=== PATIENT | female | born 1990 | race Caucasian/White ===

== ENCOUNTER 2020-02-29 08:27 | Day surgery (SDC) | payer OTHER, SELFPAY ==
[2020-02-26 12:19] VITALS: BMI 37.8
[2020-02-29 08:37] VITALS: BP 116/83; PULSE 75; RESP 18; TEMP 36.3; O2SAT 98
[2020-02-29 08:49] LABS: OR HCG Qualitative Urine Negative (Negative)
[2020-02-29] MEDS: sodium chloride 0.9% 1,000 ML 30 ML IV (08:55)
--- NOTE | 2020-02-29 09:13 | W.PM.OPSUD ---
Surgery/Procedure H&P Update DATE OF PROCEDURE: February 29, 2020 DATE H&P PERFORMED: 02/24/20 H&P UPDATE INFORMATION: I have reviewed H&P completed within last 30 days, I have examined patient prior to procedure and No changes to prior documentation PREOP DIAGNOSIS: Bleeding per rectum PRIMARY INDICATION FOR PROCEDURE: The same PLANNED PROCEDURE: Operation Date: 02/29/20 09:20 Proposed Procedures p Colonoscopy [id number] K62.5 K64.9(Not Applicable) - Trever Porter MD s Exam Under Anesthesia(Not Applicable) - Trever Porter MD s poss Hemorroidectomy(Not Applicable) - Trever Porter MD
--- NOTE | 2020-02-29 09:26 | ANES.PREANE2 ---
Pre-Anesthetic Assessment Pre-Anesthetic Assessment: Height/Weight: Height 1.68 m Weight 106.141 kg Temp Pulse Resp BP Pulse Ox 97.3 F L 75 18 116/83 98 02/29/20 08:37 02/29/20 08:37 02/29/20 08:37 02/29/20 08:37 02/29/20 08:37 Preop Diagnosis: Bleeding per rectum Proposed Procedure: Operation Date: 02/29/20 09:20 Proposed Procedures p Colonoscopy [id number] K62.5 K64.9(Not Applicable) - Trever Porter MD s Exam Under Anesthesia(Not Applicable) - Trever Porter MD s poss Hemorroidectomy(Not Applicable) - Trever Porter MD Last intake: Intake Last Liquid Date 02/28/20 Last Liquid Time 22:00 Last Solid Date 02/27/20 Last Solid Time 16:00 Social: Social History: Tobacco and No alcohol Exam: Pre-Anes Outpt Exam: alert, oriented x 3, clear to auscultation bilaterally and regular rate & rhythm Airway: Submandibular: WNL Cervical ROM: WNL MP: 2 Dentition: Full History/ROS: No significant history except as noted Pulmonary: Pulmonary: None reported CV/HEM: CV/HEM: None reported : : None reported Hepatic: Hepatic: None reported GI: GI: None reported Metabolic: Metabolic: None reported Musc/skel: Musc/skel: None reported Neuropsych: Neuropsych: None reported Anesthetic Plan: ASA status: 2 Anesthesia: General Risk of > 500 ml blood loss (7ml/kg in children): No PFSH Anesthesia PFSH: Medical History No pertinent past medical history Denies: diabetes, asthma, hypertension, seizures, DVT/PE. PCP: None Surgical History S/P appendectomy Open appendectomy with incision and McBurney's point for ruptured appendix in 2001 at [facility]. Status post tonsillectomy 2010 Family History Grandfather Colitis maternal Mother Multiple sclerosis Grandmother Multiple sclerosis maternal Family/Other Diabetes maternal great aunt Denies family history of Colon cancer Ovarian cancer DVT (deep venous thrombosis) Heart disease Hyperlipidemia Breast cancer Pulmonary embolism Hypertension Uterine cancer Thyroid condition Stroke Social History Smoking and tobacco status: current every day smoker Additional social history: - Tobacco Use: Started smoking at the age of 17 and smoked for the most 1 pack of cigarettes a day; is currently smoking half pack of cigarettes a day. She currently declines any aids to help with stopping smoking. 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
--- NOTE | 2020-02-29 10:01 | PM.OP ---
Operative Report Date of procedure: February 29, 2020 Pre-op Diagnosis: Bleeding per rectum Post-op diagnosis: same (Small right lower lateral external hemorrhoid without complication, rectal polyps x2 measures 2 to 4 mm average in diameter) Procedure Done: Colonoscopy with biopsy and examination under anesthesia Specimens removed/disposition: Rectal polyps Surgeon: Trever Porter Polymer Tester: camera repair technician Amanda Circulating nurse Marva Anesthesia: MAC (Beto Christensen) Estimated blood loss (mL): 1 Condition: stable Disposition: same day Brief History: This is a pleasant 29 years old female patient was referred to my practice with history of intermittent bleeding per rectum and there was a concern about history of hemorrhoids, patient was evaluated and after thorough history physical examination and reviewing the chart I did behavioral school counselors the patient for colonoscopy with examination under anesthesia and possible hemorrhoidectomy. Patient agreed to proceed accordingly and informed consent per chart Procedure: Patient was identified in the holding area, was taken to the OR placed first in supine position then patient was placed in left lateral position and IV propofol was infused by the anesthesia provider during the whole entire procedure the patient was monitored via monitoring and evaluation advisor. Timeout was done verifying the patient's name procedure and destination after the procedure and all were in agreement Perianal examination showed small right lower lateral external hemorrhoid without complication Following that a digital rectal examination was done and there were no masses appreciated and bleeding, the colonoscope was then introduced via the anus under direct visualization, all the way to the cecum and terminal ileum, prep of the colon was appropriate, there were 2 rectal polyps identified and a multi-bite cold biopsy forceps was used to remove both polyps and both were sent for permanent pathology, Endo Clip resolution type was used to approximate the edges of 1 of the polypectomy site, otherwise there was no evidence of masses or diverticular disease or strictures, the scope was then retrieved back ,time for withdrawal exceeded 8 minutes, gas was deflated on the way out.Retroflex was done at the end showing no other hemorrhoidal disease or anal masses. Specimens were passed to the circulating nurse Patient was repositioned to supine position, patient tolerated the procedure well Patient was taken to the recovery area in stable condition I was present for the whole entire procedure
[2020-02-29 10:02] VITALS: BP 111/60; PULSE 53; RESP 16; TEMP 36.5; O2SAT 99
[2020-02-29 10:17] VITALS: BP 117/55; PULSE 54; RESP 16; TEMP 36.6; O2SAT 100
--- NOTE | 2020-02-29 10:59 | PM.PACU ---
PACU note PACU note: VSS, pain good control. Post-Anesthesia Exam: awake Disposition: discharged
== END 2020-02-29 10:40 | disposition home or self-care (01) ==
PROVIDERS: Visit Provider Surgery
PROC: 0DJD8ZZ Inspection of Lower Intestinal Tract, Via Natural or Artificial Opening Endoscopic (ICD-10-PCS; CPT 45378; principal; 2020-02-29 09:20)
PROC: (CPT 45380; 2020-02-29 09:20)
DX: K62.1 Rectal polyp (principal); K64.4 Residual hemorrhoidal skin tags; F17.210 Nicotine dependence, cigarettes, uncomplicated
CPT/HCPCS: 45380; 12345; 81025; 84703; 88305; J2704; J7030

== ENCOUNTER → 2021-02-09 08:30 | Outpatient (BNVA) | payer OTHER, SELFPAY | PROVIDERS: Visit Provider Obstetrics & Gynecology | DX: Z12.4 Encounter for screening for malignant neoplasm of cervix (principal) | CPT/HCPCS: 88175 ==

== ENCOUNTER 2023-08-19 16:00 | Outpatient (CLI) | payer OTHER, SELFPAY | END 2023-08-19 16:01 | disposition home or self-care (01) | LOC: SLEEP 08-21 12:39 | PROVIDERS: PCP Nurse Practitioner Family; Visit Provider Nurse Practitioner Family | DX: G47.10 Hypersomnia, unspecified (principal); R06.83 Snoring | CPT/HCPCS: G0399 ==

== ENCOUNTER → 2023-10-09 15:27 | Outpatient (BNVA) | payer OTHER, SELFPAY | PROVIDERS: PCP Nurse Practitioner Family; Referring Provider Nurse Practitioner Family; Visit Provider Specialist | DX: G56.03 Carpal tunnel syndrome, bilateral upper limbs (principal) | CPT/HCPCS: 73130; 80053; 85025 ==

== ENCOUNTER → 2023-11-20 09:59 | Outpatient (BNVA) | payer OTHER, SELFPAY | PROVIDERS: PCP Nurse Practitioner Family; Visit Provider Family Medicine | DX: Z01.818 Encounter for other preprocedural examination (principal) | CPT/HCPCS: 80048; 85025 ==

== ENCOUNTER 2023-11-28 06:36 | Day surgery (SDC) | payer OTHER, SELFPAY ==
[2023-11-28] VITALS (10 sets, daily range): BP systolic 94–140; BP diastolic 55–78; PULSE 62–80; RESP 12–18; TEMP 35.8–36.4; O2SAT 95–98; BMI 46.5
[2023-11-28 07:04] LABS: OR HCG Qualitative Urine Negative (Negative)
--- NOTE | 2023-11-28 07:04 | P.HPUD_ITS ---
Surgery/Procedure H&P Update DATE OF PROCEDURE: November 28, 2023 DATE H&P PERFORMED: 11/20/23 H&P UPDATE INFORMATION: I have reviewed H&P completed within last 30 days, I have examined patient prior to procedure, No changes to prior documentation and H&P is in [facility] EMR on date indicated PLANNED PROCEDURE: Operation Date: 11/28/23 08:10 Proposed Procedures p Carpal Tunnel Release(Left) - Manuela Rondon MD Related Problem List Diagnoses (1) Carpal tunnel syndrome, left:
--- NOTE | 2023-11-28 07:14 | ANES.PREANE2 ---
Pre-Anesthetic Assessment Height/Weight: Height 1.7 m Operation Date: 11/28/23 08:10 Proposed Procedures p Carpal Tunnel Release(Left) - Manuela Rondon MD Familial anesthetic complications: none Was Beta Jae taken within 24 hours: N/A Was Clonidine taken within 24 hours: N/A Social Tobacco and No alcohol Exam alert, oriented x 3 and regular rate & rhythm Airway Submandibular: within normal limits Cervical ROM: within normal limits Mallampati: Class II Dentition: full Pulmonary Chronic Obstructive Pulmonary Disease CV/HEM Hypertension Metabolic Morbid Obesity Neuropsych Anxiety and Depression Anesthetic Plan ASA status: 3 Anesthesia: Choice Medications/Allergies Home Medications Medication Instructions Recorded Confirmed Last Taken Type escitalopram oxalate 10 mg tablet 10 mg PO DAILY 10/03/23 11/28/23 11/26/23 History (Lexapro) lisinopril 10 mg tablet 10 mg PO DAILY 10/03/23 11/28/23 11/26/23 History Allergies Allergy/AdvReac Type Severity Reaction Status Date / Time No Known Allergies Allergy Verified 11/28/23 06:53 [facility] Anesthesia Medical History Anxiety and depression Hypertension No pertinent past medical history Denies diabetes, asthma, seizures, DVT/PE PCP: JAMIE Ramsay Surgical History Status post tonsillectomy 2010 S/P appendectomy Open appendectomy with incision and McBurney's point for ruptured appendix in 2001 at [facility]. Family History Grandfather Colitis maternal Mother Multiple sclerosis, Onset Age: 40 Grandmother Multiple sclerosis maternal Family/Other Diabetes maternal great aunt Denies family history of Colon cancer Ovarian cancer DVT (deep venous thrombosis) Heart disease Hyperlipidemia Breast cancer Pulmonary embolism Hypertension Uterine cancer Thyroid disease Stroke Female Reproductive History Date of last menstrual period: 10/28/23 Data Anesthesia Cardiac Studies: No Data to Display
[2023-11-28] MEDS: gabapentin 300 mg Capsule PO (07:20)
[2023-11-28] MEDS: CELEcoxib 200 mg Capsule 400 MG PO (07:20)
[2023-11-28] MEDS: sodium chloride 0.9% 1,000 ML 30 ML IV (07:22)
[2023-11-28] MEDS: acetaminophen 1,000 MG/100 ML PIGGYBACK 400 MG IV (07:23)
[2023-11-28] MEDS: ceFAZolin 2,000 MG in sodium chloride 0.9% (plus) 50 ML 100 MG IV (08:07)
[2023-11-28] MEDS: BUPivacaine 0.5% INJ 30 mL XX (08:29)
--- NOTE | 2023-11-28 09:19 | PM.OP ---
Operative Report Date of procedure: November 28, 2023 Pre-op diagnosis: Left carpal tunnel syndrome Post-op diagnosis: Left carpal tunnel syndrome Post-op findings: Significant compression across the carpal canal with compression along the median nerve proximally as well Procedure done: Left carpal tunnel release Specimens removed/disposition: None Surgeon: Manuela Rondon MD Insulation Estimator: None Anesthesia: General (Per LMA, ASA 3) Estimated blood loss (mL): 2 Tourniquet time (min): 21 (At 250 mmHg) Tourniquet was elevated initially for only 2 minutes. There was some leakage from the tourniquet, and it was reinflated and reelevated IV fluids (mL): 400 Urine output (mL): 0 (No Lowery) Complications: None Findings: Significant findings of carpal tunnel syndrome with compression across the median nerve Condition: stable Disposition: PACU (Then return to same-day surgery for discharge to home) Brief History: This 33-year-old woman presented to the office with complaints of bilateral carpal tunnel syndromes. Nerve conduction studies demonstrated that indeed she had compression of the median nerve at the wrist. After discussion, the patient wished to proceed with operative intervention in the form of left carpal tunnel release. Procedure: The patient was brought to the operating theater. The patient had a general anesthesia per LMA, ASA 3. The tourniquet was elevated to 250 mmHg for a total tourniquet time of 21 minutes. The patient was also given Ancef 2 g preoperatively. The arm was then prepped and draped with DuraPrep in usual fashion with the arm draped free. A surgical pause was performed. At the time, the surgical pause, we confirmed the site and side of surgery. We also confirmed the patient's identity, appropriate and timely administration of preoperative antibiotics and preoperative surgical markings. An incision was then made along the thenar crease. The incision crossed the wrist joint in a curvilinear fashion. Dissection continued through skin and soft tissues using a scalpel. The palmaris longus was identified along with the transverse carpal ligament. Each of these was released carefully to avoid injury to the median nerve. We were able to dissect gently into the carpal canal which was noted to be quite tight with significant compression across the median nerve. The nerve was visualized and was an hourglass shape. The canal was subsequently palpated to assure there was no bony encroachment upon the canal. There was a quite thickened fibrous tissue within the canal, and this was opened longitudinally as well. The canal was then palpated distally and proximally to assure that my small finger was passed easily without impingement. Finding this to be so, attention was directed to closure. The wound was irrigated with ropivacaine plain. It was then closed with 3-0 nylon in an interrupted mattress fashion. Sterile dressing was then placed consisting of Dermabond, OpSite, fluffed fluffs, soft roll, and an Burak wrap. The tourniquet was released after 21 minutes. There were no complications. There were no specimens. The procedure was well tolerated. Plan is the patient will be discharged home. Related Problem List Diagnoses (1) Carpal tunnel syndrome, left:
--- NOTE | 2023-11-28 13:47 | ANE.PACU2 ---
Inpatient post-anesthesia follow up: Airway intact: Yes Vital signs: Temperature 97.0 F Pulse Rate 62 Respiratory Rate 18 Blood Pressure 106/71 Pulse Oximetry 97 Oxygen Delivery Me thod Room Air Oxygen Flow Rate 6 Fraction of Inspir ed Oxygen Hydration adequate: Yes Nausea and vomiting: No Pain level: 2 Mental status: Baseline
== END 2023-11-28 10:04 | disposition home or self-care (01) ==
PROVIDERS: Anesthesiology; PCP Nurse Practitioner Family; Visit Provider Specialist
PROC: (CPT 64721; principal; 2023-11-28 08:00)
DX: G56.02 Carpal tunnel syndrome, left upper limb (principal)
CPT/HCPCS: 64721; 81025; J0131; J0690; J1100; J2250; J2405; J2704; J3010; J3490; J7030

== ENCOUNTER 2024-03-19 06:59 | Day surgery (SDC) | payer OTHER, SELFPAY ==
[2024-03-19] VITALS (10 sets, daily range): BP systolic 107–137; BP diastolic 72–99; PULSE 60–77; RESP 16; TEMP 36.1–37.1; O2SAT 95–100; BMI 45.7
[2024-03-19] MEDS: sodium chloride 0.9% 1,000 ML 30 ML IV (07:00)
--- NOTE | 2024-03-19 07:05 | ANES.PREANE2 ---
Pre-Anesthetic Assessment Height/Weight: Height 5 ft 5 in Operation Date: 03/19/24 08:15 Proposed Procedures p Carpal Tunnel Release(Right) - Manuela Rondon MD Familial anesthetic complications: none Social Tobacco current smoker Airway Submandibular: within normal limits Cervical ROM: within normal limits Mallampati: Class II Dentition: full Anesthetic Plan ASA status: 3 Anesthesia: General Other: Patient recently had similar procedure without issues NPO since midnight Hypertension on lisinopril Current smoker test METS greater than 4 Plan for general anesthetic with LMA Medications/Allergies Home Medications Medication Instructions Recorded Confirmed Last Taken Type escitalopram oxalate 10 mg tablet 10 mg PO DAILY 10/03/23 03/17/24 03/17/24 History (Lexapro) lisinopril 10 mg tablet 10 mg PO DAILY 10/03/23 03/17/24 03/17/24 History Allergies Allergy/AdvReac Type Severity Reaction Status Date / Time No Known Allergies Allergy Verified 03/19/24 06:54 [facility] Anesthesia Medical History Anxiety and depression Hypertension No pertinent past medical history Denies diabetes, asthma, seizures, DVT/PE PCP: JAMIE Ramsay Surgical History Status post tonsillectomy 2010 S/P appendectomy Open appendectomy with incision and McBurney's point for ruptured appendix in 2001 at [facility]. Family History Grandfather Colitis maternal Mother Multiple sclerosis, Onset Age: 40 Grandmother Multiple sclerosis maternal Family/Other Diabetes maternal great aunt Denies family history of Colon cancer Ovarian cancer DVT (deep venous thrombosis) Heart disease Hyperlipidemia Breast cancer Pulmonary embolism Hypertension Uterine cancer Thyroid disease Stroke Social History Smoking and tobacco/nicotine status: current every day tobacco/nicotine user Data Anesthesia Cardiac Studies: No Data to Display
[2024-03-19] MEDS: gabapentin 300 mg Capsule PO (07:12)
[2024-03-19] MEDS: acetaminophen 1,000 MG/100 ML PIGGYBACK 400 MG IV (07:12)
[2024-03-19] MEDS: CELEcoxib 200 mg Capsule 400 MG PO (07:12)
--- NOTE | 2024-03-19 07:51 | W.PM.OPSUD ---
Surgery/Procedure H&P Update DATE OF PROCEDURE: March 19, 2024 DATE H&P PERFORMED: 03/09/24 H&P UPDATE INFORMATION: I have reviewed H&P completed within last 30 days, I have examined patient prior to procedure, No changes to prior documentation and H&P is in [facility] EMR on date indicated PLANNED PROCEDURE: Operation Date: 03/19/24 08:15 Proposed Procedures p Carpal Tunnel Release(Right) - Manuela Rondon MD Related Problem List Diagnoses (1) Carpal tunnel syndrome on right:
[2024-03-19 07:53] LABS: OR HCG Qualitative Urine Negative (Negative)
[2024-03-19] MEDS: ceFAZolin 3,000 MG in sodium chloride 0.9% (100 ml) 100 ML 200 MG IV (08:07)
[2024-03-19] MEDS: BUPivacaine 0.5% INJ 30 mL XX (08:29)
--- NOTE | 2024-03-19 09:17 | P.OP_ITS ---
Operative Report Date of procedure: March 19, 2024 Pre-op diagnosis: Right carpal tunnel syndrome Post-op diagnosis: Right carpal tunnel syndrome Post-op findings: Very tight carpal canal with compression across the nerve and purpleish discoloration Procedure done: Right carpal tunnel release Implants: None Specimens removed/disposition: None Surgeon: Manuela Rondon MD Operator Assistant I Cementing: None Anesthesia: General (Per LMA, ASA 3) Estimated blood loss (mL): 4 Tourniquet time (min): 9 (At 250 mmHg) IV fluids (mL): 350 Urine output (mL): 0 (No Lowery) Complications: None Findings: Severe compression across the carpal canal Condition: stable Disposition: PACU (Then return to same-day surgery for discharge to home) Brief History: This 33-year-old woman presented initially to the clinic with complaints of her right hand going numb and tingling at night. She had a successful left carpal tunnel release, and as the right became more symptomatic. She wished to proceed with right carpal tunnel release. Risks and complications were discussed with her in the office. Consents were signed and questions were answered. Procedure: The patient was brought to the operating theater. Patient was administered a general anesthetic per LMA, ASA 3. This was accomplished uneventfully. She was also given Ancef 3 g prophylactically. The arm was then prepped and draped with DuraPrep in usual fashion with the arm draped free. A surgical pause was performed. At the time, the surgical pause, we confirmed the site and side of surgery. We also confirmed the patient's identity, appropriate and timely administration of preoperative antibiotics and preoperative surgical markings. The arm was exsanguinated and tourniquet was elevated to 250 mmHg for a total tourniquet time of 9 minutes. An incision was then made along the thenar crease. The incision crossed the wrist joint in a curvilinear fashion. Dissection continued through skin and soft tissues using a scalpel. The palmaris longus was identified along with the transverse carpal ligament. Each of these was released carefully to avoid injury to the median nerve. We were able to dissect gently into the carpal canal which was noted to be quite tight with significant compression across the median nerve. The nerve was visualized and was an hourglass shape. The canal was subsequently palpated to assure there was no bony encroachment upon the canal. There was a quite thickened fibrous tissue within the canal, and this was opened longitudinally as well. The canal was then palpated distally and proximally to assure that my small finger was passed easily without impingement. Finding this to be so, attention was directed to closure. The wound was irrigated with ropivacaine plain. It was then closed with 3-0 nylon in an interrupted mattress fashion. Sterile dressing was then placed consisting of Dermabond, OpSite, fluffed fluffs, sterile soft roll, and an Burak wrap. The tourniquet was released after 9 minutes. There were no complications. There were no specimens. The procedure was well tolerated. Plan is the patient will be discharged home. Related Problem List Diagnoses (1) Carpal tunnel syndrome on right:
--- NOTE | 2024-03-19 10:09 | ANE.PACU2 ---
Inpatient post-anesthesia follow up: Airway intact: Yes Vital signs: Temperature 98.7 F Pulse Rate 60 Respiratory Rate 16 Blood Pressure 131/88 Pulse Oximetry 99 Oxygen Delivery Me thod Room Air Oxygen Flow Rate 8 Fraction of Inspir ed Oxygen Hydration adequate: Yes Nausea and vomiting: No Pain level: 1 Mental status: Baseline
== END 2024-03-19 10:10 | disposition home or self-care (01) ==
PROVIDERS: Student in an Organized Health Care Education/Training Program; PCP Nurse Practitioner Family; Visit Provider Specialist
PROC: (CPT 64721; principal; 2024-03-19 08:05)
DX: G56.01 Carpal tunnel syndrome, right upper limb (principal)
CPT/HCPCS: 64721; 81025; J0131; J0690; J1100; J2250; J2405; J2704; J3010; J3490; J7030